=== PATIENT | male | born 1970 | race Caucasian/White ===

== ENCOUNTER 2019-03-10 00:55 | Emergency (ER) | payer BC ==
[2019-03-10] MEDS ORDERED: Cyclobenzaprine 10 MG Tab PO ONE (00:56)
[2019-03-10] MEDS ORDERED: Acetaminophen/HYDROcodone 325-5 MG Tab PO ONE (08:14)
--- NOTE | 2019-03-10 08:25 | EDM.PDOC ---
ED HPI GENERAL MEDICAL PROBLEM - General Chief Complaint: General Stated Complaint: LBP Time Seen by Provider: 03/10/19 01:10 Source of Information: Reports: Patient, Family History Limitations: Reports: No Limitations - History of Present Illness INITIAL COMMENTS - FREE TEXT/NARRATIVE: States that he reached for his phone. He reached up and to the side and he developed a sharp pain that goes "across the bottom of my ribs". It is sharp and stabbing. He states that it was so intense that he couldn't move. Called sister as he couldn't move and they called ambulance as he was not able to get up due to the pain that he was having. Pain did not radiate down or up or to the right. Pain did not go down the spine. With any movement the pain would intensify. Denies any injury or lifting during the day. Onset: Sudden Onset Date: 03/09/19 Location: Reports: Back, Radiates to (left side around the lower level of the ribs.) Quality: Reports: Sharp, Stabbing Severity: Severe Associated Symptoms: Reports: No Other Symptoms Lower Back Pain Score (Numeric/FACES): 8 Left Middle Back Pain Score (Numeric/FACES): 5 - Related Data Allergies Allergy/AdvReac Type Severity Reaction Status Date / Time ibuprofen Allergy Itching Verified 03/10/19 06:53 methylprednisolone Allergy Itching Verified 03/10/19 06:53 Home Meds: Home Meds Fluticasone/Vilanterol [Breo Ellipta 200-25 Mcg INH] 1 each IH DAILY 03/10/19 [ History] Losartan/Hydrochlorothiazide [Losartan-HCTZ 100-25 MG] 1 each PO DAILY 03/10/19 [History] Past Medical History Cardiovascular History: Reports: Hypertension ED ROS GENERAL - Review of Systems Review Of Systems: See Below Constitutional: Reports: No Symptoms Respiratory: Reports: No Symptoms Cardiovascular: Reports: No Symptoms GI/Abdominal: Reports: No Symptoms Musculoskeletal: Reports: Back Pain Skin: Reports: No Symptoms Neurological: Reports: No Symptoms ED EXAM, GENERAL - Physical Exam Exam: See Below Exam Limited By: No Limitations General Appearance: Alert, WD/WN, Severe Distress Ears: Normal External Exam, Normal TMs Throat/Mouth: Normal Inspection, Normal Oropharynx Head: Atraumatic, Normocephalic Neck: Normal Inspection, Supple, Non-Tender Respiratory/Chest: No Respiratory Distress, Lungs Clear, Normal Breath Sounds Cardiovascular: Normal Peripheral Pulses, Regular Rate, Rhythm, No Edema GI/Abdominal: Normal Bowel Sounds, Soft Back Exam: Normal Inspection, Muscle Spasm (starts on the left paraspinal area with radiation under the rib cage area to the lateral side. If he tries to move and turn off of his right side he has severe muscle spasms that come in waves. If he tries to reach back with the left arm it causes severe spasms in the same area. No swelling or redness to the area. If palpate the area will also cause spasm to occur) Extremities: Normal Inspection Neurological: Alert, Oriented Course - Vital Signs Last Recorded V/S: Last Vital Signs Temp 99.1 F 03/10/19 08:05 Pulse 68 03/10/19 08:05 Resp 18 03/10/19 08:05 BP 199/91 H 03/10/19 08:05 Pulse Ox 95 03/10/19 08:05 - Orders/Labs/Meds Meds: Medications Discontinued Medications Generic Name Dose Route Start Last Admin Trade Name Vick PRN Reason Stop Dose Admin Hydrocodone Bitart/Acetaminophen 1 tab 03/10/19 08:14 03/10/19 08:23 [place] 325-5 Mg PO 03/10/19 08:15 1 tab ONETIME ONE Administration Diazepam Confirm 03/10/19 09:09 Valium Administered 03/10/19 09:10 Dose 10 mg .ROUTE .STK-MED ONE Diazepam 5 mg 03/10/19 09:05 Valium IM 03/10/19 09:06 ONETIME ONE - Re-Assessments/Exams Free Text/Narrative Re-Assessment/Exam: 03/10/19 0230- will make him extended ER as he is continuing to have spasms. Not able to have antiinflammatory as he is allergic. will let him rest and see if he can roll on to his back without severe pain and then get him up. Will use antispasmodic and pain meds. 03/10/19 0800- Continues to lay on abdomen as it causes spasms. Discussed that he needs to roll onto his back and try to sit up. Will repeat norco and try to sit up. Departure - Departure Time of Disposition: 11:10 Disposition: Home, Self-Care 01 Condition: Good Clinical Impression: Muscle spasm of back - Discharge Information *PRESCRIPTION DRUG MONITORING PROGRAM REVIEWED*: Not Applicable *COPY OF PRESCRIPTION DRUG MONITORING REPORT IN PATIENT PAUL: Not Applicable Instructions: Muscle Cramps and Spasms, [id number], Back Exercises Referrals: PCP,None [Primary Care Provider] - Forms: ED Department Discharge Additional Instructions: take cyclobenzaprine 1 tablet every 12 hours as needed tylenol for pain heating pad to back as needed No lifting If pain returns may need to go to physical therapy- If so please call clinic in the AM and I will arrange for this - Problem List & Annotations (1) Muscle spasm of back SNOMED Code(s): 996378705 Code(s): M62.830 - MUSCLE SPASM OF BACK Status: Acute Priority: High Current Visit: Yes - Problem List Review Problem List Initiated/Reviewed/Updated: Yes
[2019-03-10] MEDS ORDERED: Take Home: Cyclobenzaprine 10 MG Tab, 4 Tab Pack PO ONE (11:11)
== END 2019-03-10 11:25 | disposition home or self-care (01) ==
LOC: CC.ED 00:55
DX: M62.830 Muscle spasm of back (principal); I10 Essential (primary) hypertension; Z88.6 Allergy status to analgesic agent
CPT/HCPCS: 96372; 99283; A9270-GY; J2360; J3360

== ENCOUNTER 2019-11-17 22:42 | Emergency (ER) | payer BC ==
[2019-11-17] MEDS ORDERED: Acetaminophen 500 MG Tab PO ONE (22:54)
[2019-11-17] MEDS ORDERED: Albuterol/Ipratropium 3.0-0.5 MG/3 ML Neb Soln NEB ONE (23:13)
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
[2019-11-17] MEDS ORDERED: Oseltamivir 75 MG Cap PO ONE (23:23)
== END 2019-11-17 23:55 | disposition home or self-care (01) ==
LOC: CC.ED 22:42
DX: J10.1 Influenza due to other identified influenza virus with other respiratory manifestations (principal); I10 Essential (primary) hypertension; J44.9 Chronic obstructive pulmonary disease, unspecified; Z79.51 Long term (current) use of inhaled steroids; Z79.899 Other long term (current) drug therapy; Z87.891 Personal history of nicotine dependence; Z88.6 Allergy status to analgesic agent
CPT/HCPCS: 87804; 94640; 99284-25; A9270-GY; J7620-GY

== ENCOUNTER 2020-07-02 12:35 | Emergency (ER) | payer OTHER, BC ==
--- NOTE | 2020-07-02 13:09 | EDM.PDOC ---
ED HPI GENERAL MEDICAL PROBLEM - General Chief Complaint: Lower Extremity Injury/Pain Stated Complaint: leg pain Time Seen by Provider: 07/02/20 12:47 Source of Information: Reports: Patient History Limitations: Reports: No Limitations - History of Present Illness INITIAL COMMENTS - FREE TEXT/NARRATIVE: Patient presents today for pain in his posterior heel. He was at work, slipped on a board and hyperextended his ankle. [place] a "huge pop" and now has pain, burning and numbness in his ankle and foot. Unable to bear weight. States is able to move his foot minimally. He reports a history of a "shortened achilles". Has seen podiatry for a "knob on my achilles before". Took NSAIDs but caused severe pruritis. Did do exercises as was recommended and that had improved. Onset: Today, Sudden Duration: Minutes:, Constant Location: Reports: Lower Extremity, Left Quality: Reports: Burning, Sharp, Throbbing Severity: Moderate Improves with: Reports: Rest Worsens with: Reports: Movement Associated Symptoms: Reports: No Other Symptoms Left Posterior Ankle Pain Score (Numeric/FACES): 7 - Related Data Allergies Allergy/AdvReac Type Severity Reaction Status Date / Time ibuprofen Allergy Itching Verified 07/02/20 13:00 methylprednisolone Allergy Itching Verified 07/02/20 13:00 Home Meds: Home Meds Losartan Potassium 100 mg PO DAILY 11/17/19 [History] amLODIPine [Norvasc] 5 mg PO DAILY 11/17/19 [History] hydroCHLOROthiazide [Hydrochlorothiazide] 25 mg PO DAILY 11/17/19 [History] Albuterol Sulfate [Albuterol Sulfate Hfa] 2 puff IH QID PRN 07/02/20 [History] Budesonide [Pulmicort] 1 applic SILVERIO DAILY 07/02/20 [History] Fluticasone/Vilanterol [Breo Ellipta 100-25 MCG Inhalation Kit] 1 each IH DAILY 07/02/20 [History] Past Medical History Cardiovascular History: Reports: Hypertension Respiratory History: Reports: COPD - Infectious Disease History Infectious Disease History: Reports: None - Past Surgical History HEENT Surgical History: Reports: Naso-Sinus Surgery Social & Family History - Family History Family Medical History: Noncontributory - Caffeine Use Caffeine Use: Reports: Soda Review of Systems - Review of Systems Review Of Systems: See Below Constitutional: Denies: Chills, Diaphoresis, Fever, Weakness Eyes: Reports: No Symptoms Ears: Reports: No Symptoms Nose: Reports: No Symptoms Mouth/Throat: Reports: No Symptoms Respiratory: Reports: No Symptoms Cardiovascular: Reports: No Symptoms GI/Abdominal: Reports: No Symptoms Musculoskeletal: Reports: Leg Pain, Joint Pain Skin: Reports: No Symptoms Neurological: Reports: No Symptoms ED EXAM, GENERAL - Physical Exam Exam: See Below Exam Limited By: No Limitations General Appearance: Alert, WD/WN, Mild Distress Extremities: Other (Mild swelling noted to the posterior heel. Is spongy. Pain with palpation. distal achilles feels intact, medial achilles is soft. ) Skin Exam: Warm, Dry Course - Vital Signs Last Recorded V/S: Last Vital Signs Temp 98.0 F 07/02/20 12:42 Pulse 77 07/02/20 12:42 Resp 18 07/02/20 12:42 BP 145/92 H 07/02/20 12:42 Pulse Ox 93 L 07/02/20 12:42 - Re-Assessments/Exams Free Text/Narrative Re-Assessment/Exam: 07/02/20 Contacted radiology. Advised that best test and approach is MRI as ultrasound nor CT would be adequate to determine if achilles is torn. Departure - Departure Time of Disposition: 13:07 Disposition: Home, Self-Care 01 Condition: Fair Clinical Impression: Rupture of Achilles tendon - Discharge Information *PRESCRIPTION DRUG MONITORING PROGRAM REVIEWED*: No *COPY OF PRESCRIPTION DRUG MONITORING REPORT IN PATIENT PAUL: No Instructions: Achilles Tendon Tear Repair Forms: ED Department Discharge Additional Instructions: 1. Elevate leg as much as possible over the next 2 days 2. Cam boot with no weight bearing 3. Ice frequently to ankle tonight 4. [place] 1-2 tabs as needed for pain 5. We will call you once cleared with workman's comp to proceed with MRI. 6. Call with any questions or concerns. Sepsis Event Note (ED) - Evaluation Sepsis Screening Result: No Definite Risk - Focused Exam Vital Signs: Vital Signs Temp Pulse Resp BP Pulse Ox 07/02/20 12:42 98.0 F 77 18 145/92 H 93 L
== END 2020-07-02 13:40 | disposition home or self-care (01) ==
LOC: CC.ED 12:35
DX: S86.012A Strain of left Achilles tendon, initial encounter (principal); I10 Essential (primary) hypertension; J44.9 Chronic obstructive pulmonary disease, unspecified; Z79.899 Other long term (current) drug therapy; Z88.6 Allergy status to analgesic agent; Z88.8 Allergy status to other drugs, medicaments and biological substances; X50.9XXA Other and unspecified overexertion or strenuous movements or postures, initial encounter; Y99.0 Civilian activity done for income or pay
CPT/HCPCS: 99283

== ENCOUNTER → 2020-09-18 | Day surgery (SDC) | payer BC ==
[~2020-09-18] MED LIST: Ketamine 200 MG/20 ML MDV ONE; Lactated Ringers 1,000 ML IV SCH; Propofol 200 MG/20 ML SDV ONE; fentaNYL 100 MCG/2 ML SDV ONE
--- NOTE | 2020-09-18 13:02 | OR ---
DATE OF OPERATION: 09/18/2020 PREOPERATIVE DIAGNOSIS: SCREENING COLONOSCOPY. POSTOPERATIVE DIAGNOSIS: SCREENING COLONOSCOPY. SURGEON: Raymundo Quijano MD PROCEDURE: FULL-LENGTH COLONOSCOPY WITH FORCEPS POLYP REMOVAL X2. ANESTHESIA: MAC. COMPLICATIONS: None. SPECIMEN: Two small sessile polyps, sigmoid and rectal vault, each less than 0.5 cm. FINDINGS: 1. Full-length colonoscopy. 2. Minimal sigmoid diverticulosis. 3. Sessile polyps x2, less than 0.5 cm. RECOMMENDATIONS: Followup colonoscopy in 5 years. INDICATIONS: The patient came to the office requesting a screening colonoscopy given his age. DESCRIPTION OF PROCEDURE: The patient was prepped and draped, placed in the left lateral decubitus position. A lubricated Olympus colonoscope was inserted and easily advanced to the cecum. Direct visualization of the ileocecal valve and appendiceal orifice was accomplished. The bowel prep was fine. Upon withdrawal of the scope, cecum, ascending, transverse colon were benign. In the left side, the patient does have some scattered diverticula throughout the mid and distal sigmoid, very mild in severity. He had 2 small polyps, one in the distal sigmoid and one in the rectal vault. Both were less than 0.5 cm, sessile and flat. We removed each with forceps biopsy x2 in their entirety. The rectal vault otherwise was benign. Retroflexion of the scope showed no perianal lesions. Air was then suctioned, the scope removed without complication. VICTOR HUGO/GERMÁN /[id number]
== END ==
LOC: CC.SDS 10:07
PROVIDERS: ATTEND Family Medicine
DX: Z12.11 Encounter for screening for malignant neoplasm of colon (principal); K63.5 Polyp of colon; K57.30 Diverticulosis of large intestine without perforation or abscess without bleeding; J44.9 Chronic obstructive pulmonary disease, unspecified; I10 Essential (primary) hypertension; E66.01 Morbid (severe) obesity due to excess calories; Z88.8 Allergy status to other drugs, medicaments and biological substances; Z79.899 Other long term (current) drug therapy; Z98.890 Other specified postprocedural states; Z87.891 Personal history of nicotine dependence; Z68.41 Body mass index [BMI] 40.0-44.9, adult
CPT/HCPCS: 82962; J2704; J3010; J7120

== ENCOUNTER → 2023-09-26 | Day surgery (SDC) | payer BC ==
[~2023-09-26] MED LIST changes: -Ketamine 200 MG/20 ML MDV ONE; -Lactated Ringers 1,000 ML IV SCH; +Lidocaine 1% 30 ML SDV SUBCUT ONE; -Propofol 200 MG/20 ML SDV ONE; -fentaNYL 100 MCG/2 ML SDV ONE
== END ==
LOC: CC.SDS 08:23
PROVIDERS: ATTEND Family Medicine
DX: I87.2 Venous insufficiency (chronic) (peripheral) (principal); I83.819 Varicose veins of unspecified lower extremity with pain; J44.9 Chronic obstructive pulmonary disease, unspecified; E11.9 Type 2 diabetes mellitus without complications; K21.9 Gastro-esophageal reflux disease without esophagitis; I10 Essential (primary) hypertension; E78.5 Hyperlipidemia, unspecified; Z79.85 Long-term (current) use of injectable non-insulin antidiabetic drugs; Z79.51 Long term (current) use of inhaled steroids; Z79.84 Long term (current) use of oral hypoglycemic drugs; Z79.899 Other long term (current) drug therapy
CPT/HCPCS: C1888; J3490

== ENCOUNTER 2025-09-30 07:00 | Day surgery (SDC) | payer BC ==
[2025-09-30] MEDS: Lactated Ringers 1,000 ML IV SCH (07:06)
[2025-09-30] MEDS ORDERED: Propofol 200 MG/20 ML SDV ONE (07:30)
[2025-09-30] MEDS ORDERED: Ketamine 200 MG/20 ML MDV ONE (07:30)
[2025-09-30] MEDS ORDERED: fentaNYL 50 MCG/ML SDV ONE (07:30)
[2025-09-30] MEDS ORDERED: Midazolam 1 MG/ML 2 ML SDV ONE (07:30)
== END 2025-09-30 08:45 | disposition home or self-care (01) ==
LOC: CC.SDS 07:00
PROVIDERS: ATTEND Family Medicine
DX: Z12.11 Encounter for screening for malignant neoplasm of colon (principal); K62.1 Rectal polyp; K57.30 Diverticulosis of large intestine without perforation or abscess without bleeding; E11.9 Type 2 diabetes mellitus without complications; E78.5 Hyperlipidemia, unspecified; Z88.8 Allergy status to other drugs, medicaments and biological substances; Z79.84 Long term (current) use of oral hypoglycemic drugs; Z79.899 Other long term (current) drug therapy; Z87.891 Personal history of nicotine dependence; Z86.0100 Personal history of colon polyps, unspecified
CPT/HCPCS: 00811; J2250; J2704; J3010; J3490; J7120